=== PATIENT | male | born 1950 | race Caucasian/White ===

== ENCOUNTER → 2020-08-17 | Outpatient (CLI) | payer MEDICARE, OTHER | LOC: HEART CORB 12:55 | DX: I10 Essential (primary) hypertension (principal); I49.9 Cardiac arrhythmia, unspecified; Z78.9 Other specified health status; I08.1 Rheumatic disorders of both mitral and tricuspid valves; I27.20 Pulmonary hypertension, unspecified | CPT/HCPCS: 93306 ==

== ENCOUNTER 2021-12-28 14:42 | Observation (INO) | payer MEDICARE, OTHER ==
[~2021-12-28] VITALS: Ht 162.6 cm; Wt 52.2 kg
[~2021-12-28 14:42] MED LIST: CEFDINIR300 MG PO; IPRAT-ALBUT 0.5-3 ML NEB
[2021-12-28 15:33] LABS: HEMOGLOBIN 14.4 gm/dl (14.0-17.5); RED BLOOD COUNT 4.57 M/UL (4.20-5.50); WHITE BLOOD COUNT 17.5 K/UL (4.5-11.0)
[2021-12-28 15:57] LABS: BUN/CREATININE RATIO 24 (0-10)
[2021-12-29] MEDS ORDERED: DILTIAZEM 24HR180 M1 PO (09:18)
[2021-12-29] MEDS ORDERED: PROVENTIL HFA6.7 GM PO (09:20)
[2021-12-30] MEDS ORDERED: PREDNISONE 20 M20 MG PO (09:35)
[2021-12-30] MEDS ORDERED: SYMBICORT 16010.2 GM INH (09:35)
[2021-12-30] MEDS ORDERED: THERAGRAN M TAB1 EA PO (09:35)
[2021-12-30] MEDS ORDERED: SPIRIVA RESPIMAT4 GM INH (09:35)
[2021-12-30] MEDS ORDERED: AMOX TR-K CLV1 EAC4 PO (09:41)
--- NOTE | 2021-12-30 11:28 | NUR ---
PT IS AWAITING OXYGEN TANK FOR DISCHARGE.
== END 2021-12-30 12:01 | disposition home or self-care (01) ==
LOC: ER1 14:42 → CDU 18:19 → MED SURG 4 19:19
PROVIDERS: Emergency Medicine; ADMIT Internal Medicine Infectious Disease
DX: J18.9 Pneumonia, unspecified organism (principal); J44.1 Chronic obstructive pulmonary disease with (acute) exacerbation; J44.0 Chronic obstructive pulmonary disease with (acute) lower respiratory infection; Z20.822 Contact with and (suspected) exposure to COVID-19; J96.21 Acute and chronic respiratory failure with hypoxia; J96.22 Acute and chronic respiratory failure with hypercapnia; R64 Cachexia; I10 Essential (primary) hypertension; Z68.1 Body mass index [BMI] 19.9 or less, adult; Z87.891 Personal history of nicotine dependence
CPT/HCPCS: ECHO; 36600; 71045; 80053; 82550; 82553; 82803; 83605; 83880; 84484; 85025; 87040; 93005; 93306; 94640; 94664; 94760; 96365; 96366; 96374; 96375; 96376; 99285; G0378; J0696; J1335; J2920; Q9967; U0002